=== PATIENT | male | born 1990 | race Caucasian/White ===

== ENCOUNTER 2023-05-03 22:43 | Emergency (ER) | payer BC, OTHER ==
[2023-05-03] MEDS ORDERED: Tetracaine HCl/PF 0.5% 4 ML Bottle EYELF ONE (23:02)
[2023-05-03] MEDS ORDERED: Erythromycin Base 0.5% Ophth Oint 1 GM Tube EYELF ONE (23:55)
== END 2023-05-04 00:12 | disposition home or self-care (01) ==
LOC: MW.ED 22:43
DX: H10.9 Unspecified conjunctivitis (principal)
CPT/HCPCS: 99282; A9270; 99283; J3490